=== PATIENT | male | born 1950 | race Caucasian/White ===

== ENCOUNTER 2017-11-09 07:51 | Day surgery (SDC) | payer MEDICARE, BC ==
[2017-11-09] MEDS ORDERED: Dextrose 5%-Lactated Ringers 1,000 ML IV SCH (08:45)
[2017-11-09] MEDS ORDERED: Glycopyrrolate 0.2 MG/ML 2 ML SDV IVPUSH ONE (09:30)
[2017-11-09] MEDS ORDERED: Propofol 200 MG/20 ML SDV ONE (10:23)
[2017-11-09] MEDS ORDERED: Midazolam 1 MG/ML 2 ML SDV ONE (10:24)
[2017-11-09] MEDS ORDERED: fentaNYL 100 MCG/2 ML SDV ONE (10:24)
[2017-11-09] MEDS ORDERED: Pantoprazole 40 MG Vial IVPUSH ONE (13:40)
--- NOTE | 2017-11-19 13:22 | OR ---
DATE OF PROCEDURE: 11/09/2017 PREOPERATIVE DIAGNOSIS: Epigastric pain and dysphagia. POSTOPERATIVE DIAGNOSES: 1. Moderate-sized hiatal hernia with ulcerated gastroesophageal reflux disease and associated strictured esophagogastric junction. 2. Mild antral gastritis. OPERATIVE PROCEDURE: Esophagogastroduodenoscopy with: 1. Biopsies of antrum for CLOtest. 2. Biopsy of esophagogastric junction (33511). 3. Dilation of esophageal stricture (16136). ANESTHESIA: IV sedation. INDICATIONS FOR PROCEDURE: The patient is a 67-year-old presenting with some epigastric pain and heartburn along with increasing dysphagia. Plan is to proceed with upper GI endoscopy with biopsies and/or dilation as indicated. Potential risks including bleeding and perforation were discussed, and the patient wishes to proceed. DESCRIPTION OF PROCEDURE: The patient was taken to the operating room and placed in a left lateral decubitus position. IV sedation was administered, after which the upper GI endoscope was passed orally through the length of the esophagus and into the stomach with retroflexion view of the fundus, and thereafter through the pyloric channel into the proximal duodenum. Findings included normal hypopharynx, larynx, upper esophageal sphincter. Esophageal body was likewise unremarkable. At the EG junction, the patient was noted to have a moderate- sized hiatal hernia measuring 2-3 cm range and quite active ulcerated gastroesophageal reflux disease with linear ulcers extending roughly 2-3 cm above the mucosal EG junction. There was also associated with this a bland-appearing fibrous stricture at the EG junction. This was wide open enough such that the 1 cm gastroscope easily passed through that area, but there clearly was some degree of stricturing present. In the stomach, there was mild antral gastritis. Visualized portions of the duodenum were unremarkable. At this point, biopsies were obtained from the antrum for CLOtest for H. pylori. Multiple biopsies were then obtained from esophagogastric junction in both areas of ulceration as well as the stricture, and these were sent for histologic evaluation. At that point, no significant bleeding was noted. Prior gastrointestinal catheter was then centered across the esophageal stricture and inflated to 54-Croatian size. This was held in position for 1 minute, after which the balloon catheter was deflated and withdrawn, visible increase in diameter of the lumen was then seen and at that point, no further problems noted. The gastroscope was removed, and the patient was taken to the recovery room in satisfactory condition. Plan will be to start the patient on Protonix 40 mg daily. He also will be given IV Zosyn in the recovery room. We will see the patient back on 11/22/2017 to determine how he is doing in resuming terms of symptom control, whether to continue with medical management versus antireflux procedure. Glen Cruz MD /[id number]
== END 2017-11-09 14:20 | disposition home or self-care (01) ==
LOC: JP.SDS 07:51
PROVIDERS: ATTEND Surgery
DX: K22.2 Esophageal obstruction (principal); K44.9 Diaphragmatic hernia without obstruction or gangrene; K21.9 Gastro-esophageal reflux disease without esophagitis; K29.70 Gastritis, unspecified, without bleeding; K25.9 Gastric ulcer, unspecified as acute or chronic, without hemorrhage or perforation
CPT/HCPCS: 43239; 43249; 62270; 87081; 88305; C9113; J2250; J2704; J3010; J7042; J3490

== ENCOUNTER 2018-10-30 05:21 | Day surgery (SDC) | payer BC, MEDICARE ==
[~2018-10-30 05:21] MED LIST: Dextrose 5%-Lactated Ringers 1,000 ML IV SCH; Glycopyrrolate 0.2 MG/ML 2 ML SDV IVPUSH ONE
[2018-10-30] MEDS ORDERED: Dextrose 5%-Lactated Ringers 1,000 ML IV SCH (06:02)
[2018-10-30] MEDS ORDERED: Glycopyrrolate 0.2 MG/ML 2 ML SDV IVPUSH ONE (06:04)
[2018-10-30] MEDS ORDERED: Propofol 200 MG/20 ML SDV ONE (07:05)
[2018-10-30] MEDS ORDERED: fentaNYL 100 MCG/2 ML SDV ONE (07:05)
--- NOTE | 2018-11-05 14:04 | OR ---
DATE OF PROCEDURE: 10/30/2018 SURGEON: Glen Cruz MD PREOPERATIVE DIAGNOSES: 1. Increasing gastroesophageal reflux disease symptoms despite medical management. 2. Persistent ground-glass opacities in lungs, possibly related to chronic reflux disease. POSTOPERATIVE DIAGNOSES: 1. Moderate-sized hiatal hernia with active gastroesophageal reflux disease and ulceration. 2. Marked inflammation of hypopharynx and larynx, likely related to gastroesophageal reflux disease. 3. Mild antral gastritis. 4. High likelihood of gastroesophageal reflux disease causing nocturnal aspiration and potentially worsening the patient's pulmonary status. OPERATIVE PROCEDURE: Esophagogastroduodenoscopy with: 1. Biopsy of esophagogastric junction for histologic evaluation. 2. Biopsies of antrum for CLOtest. ANESTHESIA: IV sedation. INDICATIONS FOR PROCEDURE: A 68-year-old, who some time ago, underwent an upper endoscopy for evaluation of reflux disease and was started on proton pump inhibitor use. This was initially effective, but he also was having increasing reflux disease. He was also having problems with some shortness of breath, CT scan showed some persistent ground-glass opacities, and there was some concern that he may be having some nocturnal reflux and aspiration resulting in those pulmonary findings. The plan is to proceed with upper GI endoscopy with biopsies as indicated. Potential risks including bleeding and perforation were discussed, and the patient wishes to proceed. DETAILS OF PROCEDURE: The patient was taken to the operating room and placed in a left lateral decubitus position. IV sedation was administered, after which the upper GI endoscope was passed orally through the length of the esophagus and the stomach with retroflexion view of the fundus, thereafter through the pyloric channel into the proximal duodenum. Findings included quite reddened hypopharynx and laryngeal area, suggestive of some likely reflux disease as to its causation. The upper esophageal sphincter and esophageal body were unremarkable. However, in the distal esophagus, the patient was noted to have a moderate hiatal hernia, measuring around 3 to 4 cm, and active gastroesophageal reflux disease with some linear ulcers present. No stricturing, plaquing, or gross evidence of any neoplasia was seen. The patient within the stomach was some mild antral gastritis. Visualized portion of the pyloric channel and proximal duodenum were unremarkable. At this point, biopsies were obtained from esophagogastric junction and sent for histologic evaluation as well as then biopsies obtained from the antrum and sent for CLOtest for H. pylori. Minimal bleeding from the biopsy sites was seen, and the patient taken to the recovery room in satisfactory condition. One additional note is that, with the patient's alcohol use history, there was no sign of any esophageal varices or gastric varices. After the patient recovered and was conversant, a discussion was held with the patient, and his and the plan will be to proceed with a laparoscopic Joy fundoplication this coming Monday, as there is a fairly high likelihood that his pulmonary symptoms may be related to or at least exacerbated by aspiration episodes associated with the reflux disease, as well as, at this point, a general inadequacy of medical management with development of the linear ulcers and such while on proton pump inhibitor treatment. This surgery will be scheduled for this coming Monday. Glen Cruz MD /[id number]
== END 2018-10-30 09:28 | disposition home or self-care (01) ==
LOC: JP.SDS 05:21
PROVIDERS: ATTEND Surgery
DX: K22.10 Ulcer of esophagus without bleeding (principal); K21.0 Gastro-esophageal reflux disease with esophagitis; K29.70 Gastritis, unspecified, without bleeding; K44.9 Diaphragmatic hernia without obstruction or gangrene; J04.0 Acute laryngitis; J39.2 Other diseases of pharynx; I10 Essential (primary) hypertension; E78.5 Hyperlipidemia, unspecified
CPT/HCPCS: 36415; 43239; 80053; 83735; 83880; 84100; 85027; 85610; 85730; 87081; J2704; J3010; J3490; J7042; 88305

== ENCOUNTER 2018-11-02 06:18 | Inpatient (IN) | payer MEDICARE ==
[2018-11-02] MEDS ORDERED: Acetaminophen 500 MG Tab PO ONE (06:45)
[2018-11-02] MEDS ORDERED: Scopolamine 1.5 MG Transdermal Patch TOP ONE (06:45)
[2018-11-02] MEDS ORDERED: Dextrose 5%-Lactated Ringers 1,000 ML IV SCH (07:00)
[2018-11-02] MEDS ORDERED: fentaNYL 250 MCG/5 ML SDV ONE ×2 (07:22→08:27)
[2018-11-02] MEDS ORDERED: ceFAZolin 2 GM in Premix Bag 1 BAG IV ONE (08:00)
[2018-11-02] MEDS ORDERED: Ropivacaine 52 ML, Dexamethasone 8 MG, EPINEPHrine 0.4 MG, Sodium Chloride 0.9% 25.6 ML NERVRT SCH ×4 (08:15)
[2018-11-02] MEDS ORDERED: Ketamine 500 MG/5 ML MDV IV SCH (08:15)
[2018-11-02] MEDS ORDERED: Ketamine 50 MG in Sodium Chloride 0.9% 49.5 ML IV SCH (08:15)
[2018-11-02] MEDS ORDERED: Labetalol 20 MG/4 ML Syringe ONE (08:28)
[2018-11-02] MEDS ORDERED: Bupivacaine 0.5%/EPINEPHrine 1:200,000 50 ML MDV ONE (09:55)
[2018-11-02] MEDS ORDERED: Hydrocortisone Sodium Succinate 100 MG/2 ML SDV ONE (09:56)
[2018-11-02] MEDS ORDERED: hydrOXYzine HCl 100 MG/2 ML SDV IM ONE (10:06)
[2018-11-02] MEDS ORDERED: fentaNYL 100 MCG/2 ML SDV IVPUSH ONE (10:06)
[2018-11-02] MEDS: Labetalol 20 MG/4 ML Syringe IV ONE ×2 (10:33→10:43)
[2018-11-02] MEDS ORDERED: Labetalol 20 MG/4 ML Syringe IVPUSH ONE ×4 (10:36→11:03)
[2018-11-02] MEDS ORDERED: Neostigmine Methylsulfate 1 MG/ML 5 ML Syringe ONE (11:27)
[2018-11-02] MEDS ORDERED: Succinylcholine 200 MG/10 ML MDV ONE (11:27)
[2018-11-02] MEDS ORDERED: Propofol 200 MG/20 ML SDV ONE (11:27)
[2018-11-02] MEDS ORDERED: Ondansetron 4 MG/2 ML SDV ONE (11:27)
[2018-11-02] MEDS ORDERED: Dexamethasone 4 MG/ML SDV ONE (11:27)
[2018-11-02] MEDS ORDERED: Rocuronium 50 MG/5 ML Vial ONE (11:27)
[2018-11-02] MEDS ORDERED: Glycopyrrolate 0.2 MG/ML 5 ML MDV ONE (11:27)
[2018-11-02] MEDS ORDERED: Ondansetron 4 MG/2 ML SDV IVPUSH PRN (11:57)
[2018-11-02] MEDS ORDERED: hydrOXYzine HCl 100 MG/2 ML SDV IM PRN (11:57)
[2018-11-02] MEDS ORDERED: Albuterol/Ipratropium 3.0-0.5 MG/3 ML Neb Soln INH PRN (11:57)
[2018-11-02] MEDS ORDERED: HYDROmorphone 1 MG/ML Syringe IV PRN (11:59)
[2018-11-02] MEDS: Dextrose 5%-Lactated Ringers 1,000 ML IV SCH ×2 (12:14→19:33)
[2018-11-02] MEDS: Metoclopramide 10 MG/2 ML SDV IV SCH ×2 (13:51→18:50)
[2018-11-02] MEDS: Albuterol/Ipratropium 3.0-0.5 MG/3 ML Neb Soln INH SCH ×2 (14:30→20:44)
[2018-11-02] MEDS: Acetaminophen 325 MG Tab PO SCH ×2 (15:03→20:44)
[2018-11-02] MEDS: Pantoprazole 40 MG Vial IV SCH (15:03)
[2018-11-02] MEDS: ceFAZolin 2 GM in Premix Bag 1 BAG IV SCH ×2 (15:12→22:42)
[2018-11-02] MEDS: methylPREDNISolone Sodium Succinate 125 MG/2 ML SDV IV SCH (18:49)
[2018-11-03] MEDS: Metoclopramide 10 MG/2 ML SDV IV SCH ×4 (01:22→18:01)
[2018-11-03] MEDS: Acetaminophen 325 MG Tab PO SCH ×4 (01:24→20:44)
[2018-11-03] MEDS: methylPREDNISolone Sodium Succinate 125 MG/2 ML SDV IV SCH ×2 (05:45→17:57)
[2018-11-03] MEDS: Albuterol/Ipratropium 3.0-0.5 MG/3 ML Neb Soln INH SCH ×4 (07:19→20:49)
[2018-11-03] MEDS: ceFAZolin 2 GM in Premix Bag 1 BAG IV SCH (07:37)
[2018-11-03] MEDS: Aspirin 81 MG Tab.EC PO SCH (09:05)
[2018-11-03] MEDS: Docusate Sodium 100 MG Cap PO SCH ×2 (09:05→20:44)
[2018-11-03] MEDS: Dextrose 5%-Lactated Ringers 1,000 ML IV SCH ×2 (11:00→20:46)
[2018-11-03] MEDS: Pantoprazole 40 MG Vial IV SCH (14:38)
[2018-11-03] MEDS ORDERED: Rosuvastatin 10 MG Tab PO SCH (22:15)
[2018-11-03] MEDS: LORazepam 1 MG Tab PO SCH ×2 (22:27→23:37)
[2018-11-04] MEDS: Metoclopramide 10 MG/2 ML SDV IV SCH ×2 (00:59→05:42)
[2018-11-04] MEDS: Acetaminophen 325 MG Tab PO SCH ×2 (01:00→08:44)
[2018-11-04] MEDS: LORazepam 1 MG Tab PO SCH ×2 (03:28→05:50)
[2018-11-04] MEDS: methylPREDNISolone Sodium Succinate 125 MG/2 ML SDV IV SCH (05:43)
[2018-11-04] MEDS: Albuterol/Ipratropium 3.0-0.5 MG/3 ML Neb Soln INH SCH (07:19)
[2018-11-04] MEDS ORDERED: Hydrochlorothiazide 25 MG Tab PO SCH ×2 (08:00→09:00)
[2018-11-04] MEDS: Aspirin 81 MG Tab.EC PO SCH (08:45)
[2018-11-04] MEDS: Docusate Sodium 100 MG Cap PO SCH (08:45)
--- NOTE | 2018-11-04 14:01 | PN ---
DATE OF SERVICE: 11/03/2018 SUBJECTIVE: The patient has been afebrile with stable vital signs. The amount of liquid he is taking is going through the Joy fundoplication satisfactorily. He will be on a full liquid diet today and then continue Solu-Medrol for the potential inflammatory response he had around the proximal stomach and distal esophagus. He may be ready for discharge home tomorrow. Pain control at this point is agreed with some Tylenol only. Glen Cruz MD /[id number]
[2018-11-04] MEDS ORDERED: Rosuvastatin 10 MG Tab PO SCH (21:00)
--- NOTE | 2018-11-05 14:06 | DISCH ---
FINAL DIAGNOSES: 1. Gastroesophageal reflux disease refractory to medical management with paraesophageal diaphragmatic hernia. 2. Marked hepatomegaly. 3. Mediastinal lipoma. 4. Intense inflammatory response in distal esophagus and proximal stomach with associated thickening of the stomach in the area of the gastric deserosalization following takedown of paraesophageal hernia. 5. History of alcohol abuse and probable early alcohol withdrawal in hospital. 6. History of hyperlipidemia. 7. History of hypertension. OPERATIVE PROCEDURE: This was done on 11/02/18, diagnostic laparoscopy with: 1. Repair of paraesophageal diaphragmatic hernia with mesh and associated Joy fundoplication. 2. Repair of area of gastric deserosalization. 3. Partial gastrectomy to allow satisfactory loosened fundoplication. 4. D[place]-Cut needle liver biopsy. 5. Excision of mediastinal lipoma. SUMMARY: This is a 68-year-old male, presenting with gastroesophageal reflux disease that has become quite refractory to medical management. This was also felt to likely be playing a role in his chronic lung pathology in terms of probable episodes of aspiration. At the time of preoperative endoscopy, he was noted to have quite markedly reddened hypopharynx and larynx consistent with nocturnal reflux. On the day of admission, the patient underwent a diagnostic laparoscopy, was noted to have somewhat enlarged liver but not cirrhotic. The patient had a moderate-sized paraesophageal hernia and this was associated with quite intense inflammatory response from the distal esophagus and proximal stomach. During the course of the dissection, the mediastinal lipoma was encountered, and this was excised and the area of dissection resulted in focal area of some deserosalization of the stomach. That area was excised. Stomach was quite thickened in the proximal area because of the inflammatory response, and given this, a portion of the gastric fundus was excised, which allowed a thinner layer of stomach to be pulled up in terms of the fundoplication wrap. Postoperatively, the patient has been eating full liquid diet satisfactorily. Overnight, he has shown increasing signs of alcohol withdrawal and received some Ativan for that and will be discharged home this morning. We will likely begin resuming some alcohol intake and avoid going into full-blown alcohol withdrawal. The patient will be instructed to continue the full liquid diet for 2 weeks postoperatively. This was reviewed with his as well and he will be on the same medications as preoperatively of Tylenol 650 mg p.o. q.i.d. p.r.n. and to follow up with Dr. Cruz in [facility] on 11/14/2018.
--- NOTE | 2018-11-07 08:36 | OR ---
DATE OF PROCEDURE: 11/02/2018 SURGEON: Glen Cruz MD PREOPERATIVE DIAGNOSIS: Gastroesophageal reflux disease refractory to medical management with probable ongoing pulmonary complications. POSTOPERATIVE DIAGNOSES: 1. Gastroesophageal reflux disease refractory to medical management, likely associated with ongoing pulmonary complications associated with large paraesophageal diaphragmatic hernia. 2. Marked hepatomegaly. 3. Mediastinal lipoma. 4. Intense inflammatory response involving distal esophagus and proximal stomach associated with thickened gastric wall and area of gastric deserosalization following reduction of paraesophageal hernia. PROCEDURES: Diagnostic laparoscopy with: 1. Repair of paraesophageal diaphragmatic hernia with mesh with associated Joy fundoplication (44759). 2. Repair of area of gastric deserosalization (20965). 3. Partial gastrectomy to reduce the size of the fundoplication to allow a reasonably loose fundoplication (21478). 4. Denton-Cut needle liver biopsy (43404). 5. Excision of mediastinal lipoma (01240). ANESTHESIA: General. [employer]: Maritza Sneed PA-C. INDICATIONS FOR PROCEDURE: This is a 68-year-old presenting with worsening gastroesophageal reflux disease. Based on his recent clinical history and recent endoscopic findings, it appeared that he was probably having episodes of aspiration of esophageal contents resulting, in all likelihood, in some of his ongoing pulmonary complications. The plan is to proceed with a laparoscopic Joy fundoplication. Potential risks including bleeding, infection, leaks from any GI tract closures, problems with dysphagia postoperatively, as well as possible incomplete relief of reflux symptoms were all gone over, and the patient wishes to proceed. DETAILS OF PROCEDURE: The patient was taken to the operating room and placed in a supine position. After general endotracheal anesthesia was induced, he was converted to a lithotomy position and the abdomen prepped and draped. At 15 cm inferior and 5 cm left of xiphoid process, transverse incision was made and the peritoneal cavity entered under direct vision with an Optiview trocar inflated to 15 mmHg with CO2. Laparoscope was then reinserted. No underlying trocar insertion site injuries were seen. Following this, bilateral transversus abdominis plane blocks were placed and 4 additional trocars were placed across the upper and mid abdomen. The patient has history of heavy alcohol abuse and did have a somewhat enlarged and fatty infiltrated liver. There was no gross hepatic cirrhosis or portal hypertension present. To establish the patient's histologic status of the liver, D[place]-Cut needle biopsy was obtained from the left lobe of the liver. Minimal bleeding from the biopsy site was controlled with electrocautery. At this point, the liver was retracted anteriorly, and the area around the distal esophagus and proximal stomach was noted to be involved in a quite intense inflammatory response with its entire area being covered with a thickened, almost lobular-like layer of fibrosis. As one dissected this area sequentially free, eventually the esophagus came down well into the abdomen. The patient did have a major paraesophageal component of this hernia with prolapse of the gastric fundus in a plane anterior to the left of the course of the esophagus. This was eventually dissected down with the area of fibrosis. This area was partially deserosalized, and a segment of the stomach was then resected where that had occurred with a MARIA DOLORES stapler. During the course of dissection, a mediastinal lipoma was encountered, and this was excised to facilitate adequate repair of the paraesophageal hernia. Once the esophagus was eventually dissected free and an intraabdominal esophageal length of around 4 to 5 cm was established, a posterior crural repair was accomplished with 0 Ethibond sutures reinforced with PTFE pledgets. Due to the size of the crural defect, this was reinforced with a Phasix ST mesh, which is a dissolvable mesh that will lead to increased thickening of the scar formation at the crural repair. This was placed posterior to the esophagus and affixed there with some titanium tacking screws. At this point, the omentum was divided from the mid greater curvature upward toward the area of the short gastric vessels and including division of highest and posterior short gastric vessels. This resulted in a nicely mobile fundus. The fundus, however, was quite thickened, and it was felt that pulling the entire fundus through in this area would result in an overly tightened fundoplication and associated significant dysphagia. Given this, a portion of this gastric fundus was then resected to allow a thinner segment of stomach to be pulled posterior to the distal esophagus. Once this was accomplished with a MARIA DOLORES stapler, this was then pulled through and appeared to be reasonably thin for the subsequent fundoplication. Anesthesia then placed a guidewire orally downward through the mouth and into the stomach. Over this, a 54-Yoruba Savary dilator was positioned, and a three stitch 2 cm fundoplication was accomplished with 0 Ethibond sutures reinforced with PTFE pledgets. The fundoplication was attached to the diaphragm at 2 locations as well, to help maintain it in an appropriate position over time, with the same stitch/pledget combination. At this point, no further problems were noted. The dilator was removed, along with the wire, and the fundoplication was inspected and found to be satisfactorily loose. At that point, the trocars were sequentially removed. Fascia at the two 12 mm sites was closed with 0 Vicryl stitch and the skin with 4-0 Vicryl skin stitch at each of the incisions. The patient was taken to the recovery room in satisfactory condition. There were no evident complications. Physician assistant corporate controller, Maritza Sneed, played an essential role in assisting in this case, helping to position the patient, retract structures as needed, as well as suturing and cutting sutures when indicated. Her presence improved patient safety and decreased operative time. Glen Cruz MD /[id number]
== END 2018-11-04 09:58 | disposition home or self-care (01) | DRG 327 ==
LOC: JP.SDSSCHI 06:18 → JP.SDS 06:19 → EDSTATUS 07:30 → JP.SDSSCHI 11:40 → UNDOADMIN 11:40 → JP.MS 11:41 → JP.SDSSCHI 11:41
PROVIDERS: ADMIT Surgery; ATTEND Surgery
PROC: 0DV44ZZ Restriction of Esophagogastric Junction, Percutaneous Endoscopic Approach (ICD-10-PCS; principal; 2018-11-02)
PROC: 0BUT4JZ Supplement Diaphragm with Synthetic Substitute, Percutaneous Endoscopic Approach (ICD-10-PCS; 2018-11-02)
PROC: 0FB24ZX Excision of Left Lobe Liver, Percutaneous Endoscopic Approach, Diagnostic (ICD-10-PCS; 2018-11-02)
PROC: 0DB64ZZ Excision of Stomach, Percutaneous Endoscopic Approach (ICD-10-PCS; 2018-11-02)
PROC: 0WBC4ZX Excision of Mediastinum, Percutaneous Endoscopic Approach, Diagnostic (ICD-10-PCS; 2018-11-02)
PROC: 0DB64ZZ Excision of Stomach, Percutaneous Endoscopic Approach (ICD-10-PCS; 2018-11-02)
DX: K21.0 Gastro-esophageal reflux disease with esophagitis (principal); F10.239 Alcohol dependence with withdrawal, unspecified; K21.9 Gastro-esophageal reflux disease without esophagitis; K44.9 Diaphragmatic hernia without obstruction or gangrene; R16.0 Hepatomegaly, not elsewhere classified; D17.4 Benign lipomatous neoplasm of intrathoracic organs; K31.89 Other diseases of stomach and duodenum; E78.5 Hyperlipidemia, unspecified; I10 Essential (primary) hypertension; G47.33 Obstructive sleep apnea (adult) (pediatric); Z88.2 Allergy status to sulfonamides; Z79.82 Long term (current) use of aspirin; K70.0 Alcoholic fatty liver
CPT/HCPCS: 88304; 88307; 88313; 94640; 94762; A9270-GY; C1781; C9113; J0171; J0330; J0690; J1100; J1170; J1720; J2405; J2704; J2710; J2765; J2795; J2930; J3010; J3490; J7042; J7050; J7620-GY